=== PATIENT | male | born 1980 | race Caucasian/White ===

== ENCOUNTER 2018-08-11 03:21 | Observation (INO) | payer OTHER, SELFPAY ==
[2018-08-11] VITALS (9 sets, daily range): BP systolic 124–163; BP diastolic 66–99; PULSE 77–102; RESP 12–20; TEMP 36.6–36.8; O2SAT 96–99; BMI 42.7; BMI 41.3
--- NOTE | 2018-08-11 03:24 | ED.RN ---
NO OLD EKGS IN MUSE
--- NOTE | 2018-08-11 03:37 | EKG12_ITS ---
Test Reason : CP Blood Pressure : / mmHG Vent. Rate : 084 BPM Atrial Rate : 084 BPM P-R Int : 138 ms QRS Dur : 086 ms QT Int : 356 ms P-R-T Axes : 040 037 030 degrees QTc Int : 420 ms Normal sinus rhythm Normal ECG Confirmed by TRIPP LOPEZ, LUIGI ([id number]), editor in chief MEERA MYERS ([id number] on 08/12/2018 2:34:32 PM Referred By: KINJAL Confirmed By:LUIGI ALMAGUER MD
--- NOTE | 2018-08-11 03:40 | RAD_ITS ---
STUDY: X-RAY CHEST REASON FOR EXAM: Male, 38 years old. Chest pain TECHNIQUE: 2 views COMPARISON: None. FINDINGS: The lungs are clear and expanded. There is no demonstrated pleural abnormality. Normal size heart. Normal mediastinum and antonio. Normal visualized pulmonary arteries. Normal visualized aortic arch and descending thoracic aorta. Normal visualized thoracic spine. Normal visualized ribs, clavicles, and shoulders. There is no demonstrated abnormality of the visualized soft tissue structures of the upper abdomen. RAD/Chest PA and Lateral IMPRESSION: Normal x-ray examination of the chest. No acute findings in the lungs Electronically Signed: Juan Cai MD at 3:57 EST Tel , Service support ,
[2018-08-11 03:55] LABS: Absolute Lymphocyte Count 3.04 X10^3/ul (0.83-4.51); Absolute Neutrophil Count 7.2 X10^3/uL (2.0-7.7); Basophil# 0.03 X10^3/uL; Basophil% 0.3 % (0-1); Eosinophil# 0.27 X10^3/uL; Eosinophils% 2.3 % (0-5); Hematocrit 45.4 % (40-54); Lymphocyte # 3.04 X10^3/ul (4.0); Lymphocyte % 26.3 % (19-41); Mean Corpuscular Hgb 28.8 pg (27.0-32.0); Mean Corpuscular Volume 87.1 fL (80-94); Mean Platelet Vol. 9.5 fl (6.2-12.0); Monocyte% 8.6 % (0-10); Neutrophil % 62.2 % (47-70); Platelet Count 281 K/mm3 (150-450); RBC Distribution Width CV 11.6 % (11.6-14.6); Red Blood Count 5.21 M/mm3 (4.6-6.2); White Blood Count 11.6 K/mm3 (4.4-11.0)
[2018-08-11 03:58] LABS: POSITIVE COUNT NO; POSITIVE DIFFERENTIAL NO; POSITIVE MORPHOLOGY NO
[2018-08-11 04:03] LABS: Anion Gap 9 (5-15); BUN 13 mg/dL (7-18); BUN/Creat Ratio 11.3 RATIO (10-20); Calcium,Total 8.8 mg/dL (8.5-10.1); Chloride 105 mmol/L (98-107); Creatinine, Serum 1.15 mg/dL (0.70-1.30); EST Glomerular Filtration Rate 76 mL/min (>60); Est Glom Filt Rate - Afr Amer 92 mL/min (>60); Estimated Creatinine Clearance 93.67 ml/min; Glucose 126 mg/dL (74-106); Potassium 3.6 mmol/L (3.5-5.1); Sodium Level 142 mmol/L (136-145)
--- NOTE | 2018-08-11 04:08 | ED.VISSUMM ---
- ER Visit Summary Date of Service: 08/11/18 Chief Complaint: Chest pain History of Present Illness: The patient is a 38 M who presents with chest pain. It woke him from sleep about an hour and a half ago. He complains of 30-45 minutes of substernal chest tightness or heaviness. It was only moderate and was never severe and has improved to only mild discomfort currently. However he did have associated diaphoresis and shortness of breath. He states that when he woke he just had a uneasy feeling and was tremulous as well. He noticed that his blood pressure was very high at home. He had a similar episode 2 days ago which lasted about 20-25 minutes. He is not diabetic. He is not a smoker. His only risk factors for coronary artery disease are hypertension and obesity. Physical Examination: Afebrile blood pressure 159/99 otherwise unremarkable Heart regular rate and rhythm Lungs clear Abdomen soft Extremities nontender without edema 2+ radial pulses Test Results: EKG shows normal sinus rhythm at a rate of 84. Laboratory studies unremarkable with a negative troponin. Chest x-ray is normal. Emergency Department Course and Treatment: Patient was given aspirin prior to arrival by EMS. His workup is negative as above. ILANA risk score is 1. Heart score is 2. However I am still very concerned given his clinical presentation and description of symptoms. I do feel he should be admitted for serial enzymes and stress testing. Patient to be discussed with the hospitalist and admitted. Treatment Plan: [] Disposition: Admit Impression: Chest pain This note was generated with [employer] Voice dictation software. It may contain incorrect words, spelling, and punctuation that were not noted in review of the chart prior to signing ED Disposition - Plan for ED Patient: Chief Complaint: Chest Pain Referrals: Jorje Ureña MD [Primary Care Provider] -
--- NOTE | 2018-08-11 04:49 | HP.PCM_ITS ---
Problem List (1) Chest pain Status: Acute (2) Hypertensive emergency Status: Acute History of Present Illness Date of Admission: 08/11/18 Chief Complaint: chest pain. The patient is a 38 year old M with a significant history of obesity and hypertension who presented with chest pain. His symptoms started about 1-1/2 hours prior to presentation. Patient reported that his chest pain woke him up from his sleep. He reports that at that time he was feeling uneasy and he was shaking. He reported at that time he checked his blood pressure and his blood pressure was 190/111. His chest pain is substernal and nonradiating. His chest pain severity was about 4 on a scale of 1-10. He described his chest pain as heaviness and tightness. It lasted continuously for 30-45 minutes. And he thinks that it was relieved by 4 baby aspirin that was given by the paramedics. He did not receive any nitroglycerin. He described no aggravating factor to his chest pain. However he reported that at the onset of his chest pain he was lying prone. He reported that with sitting up his chest pain improved. He denies any nausea or vomiting. Associated with symptoms is shortness of breath and diaphoresis. He reports that because he was so diaphoretic the paramedics were having difficulty placing electrodes on his chest to get an EKG. Patient reported that he ate about 5 hours prior to sleeping. He does not think that his pain is from GERD as he does not have a history of GERD. He reports that because he was shaking when he was having his chest pain symptoms; he ate yogurt. At the time of evaluation patient had no chest pain. He reports that the only person in his family who had a heart attack was his maternal grandfather who was also a smoker. This maternal grandfather had 2 episodes of heart attack. He reported that on August 09, 2018 he had the same kind of pain that lasted for 20 minutes and was relieved by itself. Past Medical History Medical History: Medical History (Last Updated 08/11/18 @ 05:10 by Melecio Syed MD) Hypertension I10 Allergies Penicillins Allergy (Verified 08/11/18 03:22) Hives Home Medications: Ambulatory Orders Medication Instructions Recorded Amlodipine [Norvasc] 5 mg PO DAILY 08/11/18 Surgical History: no surgical history Lives: Alone Smoking Status: Never smoker Alcohol: Occasional - *Family History Maternal Family History: Family History (Last Updated 08/11/18 @ 05:12 by Melecio Syed MD) Grandfather Myocardial infarction Review of Systems Constitutional: Denies: Chills, Fever, Weight Change HEENT: Denies: Head Aches, Sinus Congestion, Sinus Drainage Cardiovascular: Reports: Chest Pain, Chest Tightness, Heaviness. Denies: Palpitations Respiratory: Reports: Shortness of Breath. Denies: Cough, Sputum production Gastrointestinal: Denies: Abdominal Pain, Nausea, Vomiting Genitourinary: Denies: Dysuria Musculoskeletal: Denies: Joint Pain, Joint Tenderness Skin: Denies: Rash, Wounds Neurological: Denies: Numbness, Tingling, Focal weakness Psychiatric: Denies: Anxiety, Depression, Homicidal Ideations, Suicidal Ideations Hematologic/ Lymphatic: Denies: Easy Bruising, Easy Bleeding VTE Information - Inpt Only VTE Present on Admission: No VTE Mechan Device Prophylaxis: None VTE Pharm Prophylaxis ordered?: Yes Patient Problems: Active and Suspected Problems (Last Updated 08/11/18 @ 05:10 by Melecio Syed MD) Chest pain (Acute) Hypertensive emergency (Acute) - Physical Exam General: Alert, Oriented x3, Cooperative HEENT: Atraumatic, PERRLA, EOMI, Normocephalic Neck: Supple, No JVD, Negative Carotid Bruits Lungs: Clear to auscultation, Normal air movement Cardiovascular: Regular rate, No murmurs Abdomen: Bowel Sounds Present, Soft, Non Tender Extremities: No edema, Capillary Refill Less than 3 Seconds Skin: No rashes, No breakdown Musculoskeletal: No Tenderness to Palpation of Joints or Extremities Neurological: Neuro grossly intact Psych/Mental Status: Normal Affect, Appropriate Vital Signs Temp Pulse Resp BP Pulse Ox 97.8 F 102 H 14 163/86 H 99 08/11/18 03:23 08/11/18 04:24 08/11/18 04:24 08/11/18 04:24 08/11/18 04:24 Oxygen Flow Rate (L/min) 2 Oxygen Delivery Method Room Air Weight: 138.9 kg Body Mass Index (BMI) 42.7 Laboratory Tests Past 24 Hrs 08/11/18 08/11/18 03:25 03:25 WBC 11.6 H RBC 5.21 Hgb 15.0 Hct 45.4 MCV 87.1 MCH 28.8 MCHC 33.0 RDW 11.6 RDW Differential 37.0 Plt Count 281 MPV 9.5 Immature Gran % (Auto) 0.300 Neut % (Auto) 62.2 Lymph % (Auto) 26.3 [place] % (Auto) 8.6 Eos % (Auto) 2.3 Baso % (Auto) 0.3 Absolute Neuts (auto) 7.2 Absolute Lymphs (auto) 3.04 Total Counted Not Reportable Sodium 142 Potassium 3.6 Chloride 105 Carbon Dioxide 28.0 Anion Gap 9 BUN 13 Creatinine 1.15 Estim Creat Clear Calc 93.67 Est GFR (MDRD) Af Amer 92 Est GFR (MDRD) Non-Af 76 BUN/Creatinine Ratio 11.3 Glucose 126 H Calcium 8.8 Troponin I < 0.015 Assessment/Plan All Active Problems (Last Updated 08/11/18 @ 05:10 by Melecio Syed MD) Chest pain (Acute) Hypertensive emergency (Acute) The patient is a 38 year old M with a significant history of morbid obesity and hypertension who presented with substernal continuous chest pain with associated diaphoresis that was relieved after taking aspirin and another episode of chest pain that lasted after 20 minutes; 2 days ago and was relieved by itself Chest pain Heart Score 2 Differential diagnosis of his chest pain includes stable angina; hypertensive emergency; GERD; muscular skeletal pain. Admit to a monitored bed on PCU CXR independently reviewed confirms no acute cardiopulmonary process. EKG independently reviewed confirms normal sinus rhythm without ST or T wave abnormalities. Acute aspirin 324 by paramedics; some day of admission. We will check lipid panel. High intensity statin x1 dose ordered. Consider maintaining on statin if chest pain from cardiac origin. Because patient will have treadmill stress test same day was sent away from nitroglycerin for now. First troponin in the emergency department was unremarkable. Serial cardiac enzymes Stat EKG as needed for chest pain Treadmill stress test in the AM if the cardiac enzymes are negative Hypertensive emergency Patient reported that his blood pressure at home was 190/111; and this could have caused his chest pain. However on admission here his high systolic blood pressure is 163; his higher diastolic blood pressure is 99. He is on amlodipine 5 mg daily. Unlikely that this amlodipine 5 mg daily can maintain his blood pressure in the long-term. Amlodipine 5mg daily continue As needed hydralazine. If cardiac workup is negative consider increasing amlodipine from 5 mg daily. If cardiac workup is positive consider starting patient on beta blockers or JENNIFER inhibitors. Trend blood pressures. DVT prophylaxis Risk includes morbid obesity. Subcutaneous Lovenox. Code Visit OBSV E&M: 99398 Initial observation care L3
--- NOTE | 2018-08-11 05:17 | EKG12_ITS ---
Test Reason : AM EKG Blood Pressure : / mmHG Vent. Rate : 084 BPM Atrial Rate : 084 BPM P-R Int : 158 ms QRS Dur : 084 ms QT Int : 356 ms P-R-T Axes : 034 043 041 degrees QTc Int : 420 ms Normal sinus rhythm Normal ECG Confirmed by TRIPP LOPEZ, LUIGI ([id number]), telegraph editor MEERA MYERS ([id number]) on 08/12/2018 2:41:33 PM Referred By: MEGHA Confirmed By:LUIGI ALMAGUER MD
[2018-08-11] MEDS: Atorvastatin Calcium 80 MG Tablet PO (05:48)
[2018-08-11 07:08] LABS: Prothrombin Time (Protime)PT. 13.3 SECONDS (11.7-14.9)
[2018-08-11 07:09] LABS: Partial Thromboplast Time 27.6 Seconds (24.1-36.2)
[2018-08-11 08:37] LABS: Cholesterol 188 mg/dL (200); High Density Lipoprotein 39 mg/dL; Triglycerides 157 mg/dL; Very Low Density Lipoprotein 31 mg/dL (5-40)
--- NOTE | 2018-08-11 10:17 | STRESSREP ---
Stress Test Report Date: 08/11/2018 Procedure: Exercise tolerance test/imaging study Indications: Chest pain Consent: Per the patient Procedure: The patient exercised on a Say protocol for 8 minutes completing Stage II and 2 minutes of Stage III achieving a peak heart rate of 179 bpm (97 % predicted maximal heart rate) with a peak blood pressure 182/88 mmHg and a peak MET capacity of 9 METs. The baseline ECG demonstrated normal sinus rhythm. The peak exercise ECG demonstrated no obvious ECG changes. There were no cardiac dysrhythmias pretest, during exercise, or recovery. The functional capacity was considered good. There was no complaint of chest discomfort during exercise or recovery. The examination was discontinued secondary to dyspnea. Impression: 1. Technically adequate (percent predicted maximal heart rate greater than 85%) exercise tolerance test 2. Peak exercise ECG with no obvious ECG changes 3. There were no cardiac dysrhythmias pretest, during exercise, or recovery 4. Nuclear images pending Myocardial perfusion imaging study: Technique: The patient was injected with 11.8 mCi of technetium 99m Cardiolite and subsequently rest SPECT Cardiolite nuclear imaging was obtained in the horizontal long, vertical long, and short axis views. The patient exercised on a Say protocol for 8 minutes completing Stage II and 2 minutes of Stage III achieving a peak heart rate of 179 bpm (97 % predicted maximal heart rate) with a peak blood pressure 182/88 mmHg and a peak MET capacity of 9 METs. The patient was injected with 34.3 mCi of technetium 99m Cardiolite and subsequently stress SPECT Cardiolite nuclear imaging was obtained in the horizontal long, vertical long, and short axis views. A gated Cardiolite study at peak stress was obtained. Interpretation: Rest and stress SPECT Cardiolite nuclear imaging status post realignment, normalization, and attenuation correction, demonstrates the appearance of extracardiac/gastrointestinal tracer uptake predominantly noted at rest as opposed to stress. At rest there is also notation of an area of diminished tracer uptake in portions of the mid towards distal anterior segments which appears to be less prominent and/or normalizing following stress. There is notation of end-systolic thickening and brightening. The gated Cardiolite study demonstrates myocardial thickening and inward wall motion. The reported LVEF is 63%. Impression: 1. Rest and stress SPECT Cardiolite nuclear imaging demonstrate areas of extra cardiac/gastrointestinal tracer uptake predominantly noted at rest as opposed to stress as well as an area of diminished tracer uptake in portions of the mid towards distal anterior segments at rest which appears to be less prominent and/or verbalizing following stress appearing compatible with the effects of shifting soft tissue attenuation/artifact with no myocardial perfusion changes considered diagnostic for associated stress-induced myocardial ischemia. 2. The gated Cardiolite study reports an LVEF of 63%. This note was generated with [employer]DI Basslineation software. It may contain incorrect words, spelling, and punctuation that were not noted in checking the note before signing.
--- NOTE | 2018-08-11 10:23 | STRESSREP_ITS ---
Stress Test Report Date: 08/11/2018 Procedure: Exercise tolerance test/imaging study Indications: Chest pain Consent: Per the patient Procedure: The patient exercised on a Say protocol for 8 minutes completing Stage II and 2 minutes of Stage III achieving a peak heart rate of 179 bpm (97 % predicted maximal heart rate) with a peak blood pressure 182/88 mmHg and a peak MET capacity of 9 METs. The baseline ECG demonstrated normal sinus rhythm. The peak exercise ECG demonstrated no obvious ECG changes. There were no cardiac dysrhythmias pretest, during exercise, or recovery. The functional capacity was considered good. There was no complaint of chest discomfort during exercise or recovery. The examination was discontinued secondary to dyspnea. Impression: 1. Technically adequate (percent predicted maximal heart rate greater than 85%) exercise tolerance test 2. Peak exercise ECG with no obvious ECG changes 3. There were no cardiac dysrhythmias pretest, during exercise, or recovery 4. Nuclear images pending Myocardial perfusion imaging study: Technique: The patient was injected with 11.8 mCi of technetium 99m Cardiolite and s ubsequently rest SPECT Cardiolite nuclear imaging was obtained in the horizontal long, vertical long, and short axis views. The patient exercised on a Say protocol for 8 minutes completing Stage II and 2 minutes of Stage III achieving a peak heart rate of 179 bpm (97 % predicted maximal heart rate) with a peak blood pressure 182/88 mmHg and a peak MET capacity of 9 METs. The patient was injected with 34.3 mCi of technetium 99m Cardiolite and subsequently stress SPECT Cardiolite nuclear imaging was obtained in the horizontal long, vertical long, and short axis views. A gated Cardiolite study at peak stress was obtained. Interpretation: Rest and stress SPECT Cardiolite nuclear imaging status post realignment, normalization, and attenuation correction, demonstrates the appearance of extr acardiac/gastrointestinal tracer uptake predominantly noted at rest as opposed to stress. At rest there is also notation of an area of diminished tracer uptake in portions of the mid towards distal anterior segments which appears to be less prominent and/or normalizing following stress. There is notation of end-systolic thickening and brightening. The gated Cardiolite study demonstrates myocardial thickening and inward wall motion. The reported LVEF is 63%. Impression: 1. Rest and stress SPECT Cardiolite nuclear imaging demonstrate areas of extra cardiac/gastrointestinal tracer uptake predominantly noted at rest as opposed to stress as well as an area of diminished tracer uptake in portions of the mid towards distal anterior segments at rest which appears to be less prominent and/or verbalizing following stress appearing compatible with the effects of shifting soft tissue attenuation/artifact with no myocardial perfusion changes considered diagnostic for associated stress-induced myocardial ischemia. 2. The gated Cardiolite study reports an LVEF of 63%. This note was generated with ReviewProation software. It may contain incorrect words, spelling, and punctuation that were not noted in checking the note before signing.
[2018-08-11] MEDS: amLODIPine 5 MG Tablet PO (10:41)
--- NOTE | 2018-08-11 10:45 | DCINST_ITS ---
- Discharge Diagnoses Current Active Problems: Current Active and Chronic Problems (Last Updated 08/11/18 @ 05:10 by Melecio Syed MD) Chest pain (Acute) Hypertensive emergency (Acute) You will use the following diet at home:: No restrictions Discharge Activity: Return to Normal Activity Call your doctor if you observe: Shortness of breath, Dizziness, Fainting spells, Chest pain Allergies/Adverse Reactions: Allergies Penicillins Allergy (Verified 08/11/18 03:22) Hives Medications to take at Discharge Amlodipine [Norvasc] 5 mg PO DAILY 08/11/18 Primary Care Physician: Jorje Ureña MD [Primary Care Provider] - Please follow up with your Primary Care Physician in: 1 Week Test Results: Test results from this visit will be discussed in further detail at your follow- up appointment, if applicable. Proposed Discharge Date: 08/11/18
--- NOTE | 2018-08-11 10:47 | PCM.DC.SUM ---
Discharge Date and Diagnosis Date of Admission: 08/11/18 Date of Discharge: 08/11/18 - Primary Discharge Diagnosis Active and Suspected Problems (Last Updated 08/11/18 @ 05:10 by Melecio Syed MD) 1. Chest pain- ACS ruled out 2. Hypertension Hospital Course and Treatment Imaging Results: Diagnostic Data Chest X-Ray 08/11/18 03:40 IMPRESSION: Normal x-ray examination of the chest. No acute findings in the lungs Electronically Signed: Juan Cai MD at 3:57 EST Tel , Service support , Operations: None Procedures: Stress test Summary of Care Provided: The patient is a 38 year old M who presents to the ER with chest pain. Patient reports this woke him up early this morning. He reported chest pressure in the center of his chest, no radiation. No other associated symptoms. Patient reports he checked his blood pressure at home which was 190/111. He has a past medical history of hypertension. Blood pressure on admission 159/99. His home amlodipine regimen was resumed and blood pressure well controlled. He denies further chest pain during admission. EKG without ST-T changes. Troponin negative. Patient underwent nuclear stress test which was negative for ischemia. ACS ruled out. Recommended continued blood pressure monitoring at home. Follow-up with primary care physician in 1 week. General: Alert, Oriented x3, Cooperative, no distress noted HEENT: Atraumatic, PERRLA, EOMI, Normocephalic Neck: Supple, No JVD, Negative Carotid Bruits Lungs: Clear to auscultation, Normal air movement Cardiovascular: Regular rate, regular rhythm, normal S1, normal S2, no murmurs Abdomen: Bowel Sounds Present, Soft, Non Tender Extremities: No edema, Capillary Refill Less than 3 Seconds Skin: No rashes, No breakdown Musculoskeletal: No Tenderness to Palpation of Joints or Extremities Neurological: Neuro grossly intact Psych/Mental Status: Normal Affect, Appropriate Patient seen and examined prior to discharge. Physical assessment as noted above. Patient is stable for discharge with follow up recommendations as noted above. This patient was seen by MHIAI Jordan under the supervision of Dr. Ayon. - Physical Exam Vital Signs Temp Pulse Resp BP Pulse Ox 98.2 F 92 17 124/66 H 96 08/11/18 10:40 08/11/18 10:40 08/11/18 10:40 08/11/18 10:40 08/11/18 10:40 Oxygen Flow Rate (L/min) 2 Oxygen Delivery Method Room Air Weight: 296 lb 4.82 oz Body Mass Index (BMI) 41.3 Laboratory Tests Past 24 Hrs 08/11/18 08/11/18 08/11/18 03:25 03:25 06:25 WBC 11.6 H RBC 5.21 Hgb 15.0 Hct 45.4 MCV 87.1 MCH 28.8 MCHC 33.0 RDW 11.6 RDW Differential 37.0 Plt Count 281 MPV 9.5 Immature Gran % (Auto) 0.300 Neut % (Auto) 62.2 Lymph % (Auto) 26.3 [place] % (Auto) 8.6 Eos % (Auto) 2.3 Baso % (Auto) 0.3 Absolute Neuts (auto) 7.2 Absolute Lymphs (auto) 3.04 Total Counted Not Reportable PT INR APTT Sodium 142 Potassium 3.6 Chloride 105 Carbon Dioxide 28.0 Anion Gap 9 BUN 13 Creatinine 1.15 Estim Creat Clear Calc 93.67 Est GFR (MDRD) Af Amer 92 Est GFR (MDRD) Non-Af 76 BUN/Creatinine Ratio 11.3 Glucose 126 H Calcium 8.8 Troponin I < 0.015 < 0.015 Triglycerides 157 Cholesterol 188 LDL Cholesterol 118 VLDL Cholesterol 31 HDL Cholesterol 39 L 08/11/18 08/11/18 06:25 09:00 WBC RBC Hgb Hct MCV MCH MCHC RDW RDW Differential Plt Count MPV Immature Gran % (Auto) Neut % (Auto) Lymph % (Auto) [place] % (Auto) Eos % (Auto) Baso % (Auto) Absolute Neuts (auto) Absolute Lymphs (auto) Total Counted PT 13.3 INR 1.0 APTT 27.6 Sodium Potassium Chloride Carbon Dioxide Anion Gap BUN Creatinine Estim Creat Clear Calc Est GFR (MDRD) Af Amer Est GFR (MDRD) Non-Af BUN/Creatinine Ratio Glucose Calcium Troponin I < 0.015 Triglycerides Cholesterol LDL Cholesterol VLDL Cholesterol HDL Cholesterol Discharge Diet: No Restrictions Discharge Activity: Return to Normal Activity Call your doctor if you observe: Shortness of breath, Dizziness, Fainting spells, Chest pain Home Medications: Medications to take at Discharge Amlodipine [Norvasc] 5 mg PO DAILY 08/11/18 Primary Care Physician: Jorje Ureña MD [Primary Care Provider] - Please follow up with your Primary Care Physician in: 1 Week Disposition: Home Minutes spent on discharge:: 35 Patient Condition:: Stable Medical Necessity - Tobacco Use Smoking Status: Never smoker Meaningful Use Info Meaningful Use Diagnoses (Choose all that apply): None applicable
== END 2018-08-11 10:45 | disposition home or self-care (01) ==
LOC: ED 03:58 → PCU 05:01
PROVIDERS: Admitting Provider Hospitalist; Emergency Provider Emergency Medicine; Family Provider Family Medicine; PCP Family Medicine; Visit Provider Internal Medicine
DX: R07.89 Other chest pain (principal); R06.02 Shortness of breath; I10 Essential (primary) hypertension; I16.1 Hypertensive emergency; E66.01 Morbid (severe) obesity due to excess calories; Z68.41 Body mass index [BMI] 40.0-44.9, adult; Z71.3 Dietary counseling and surveillance; K21.9 Gastro-esophageal reflux disease without esophagitis; Z79.899 Other long term (current) drug therapy
CPT/HCPCS: 36415; 71046; 78452; 80048; 80061; 84484; 85025; 85610; 85730; 93005; 93017; 99218; 99285; A9500; A4216; G0378